=== PATIENT | female | born 1930 | race Caucasian/White ===

== ENCOUNTER → 2016-09-16 | Outpatient (CLI) | payer MEDICARE, BC ==
[~2016-09-16] MED LIST: ACTOS PO; ALENDRONATE SOD70 M1 PO; AMIODARONE PO; AMLODIPINE BESY10 MG PO; ANTIVERT PO; ASPIRIN PO; ASPIRIN81 MG PO; ATENOLOL PO; BENTYL10 M1 PO; BENTYL10 MG PO; CALCIUM + D 6001 TA1 PO; CALCIUM 600 +1 EACH PO; CALTRATE 600 W-1 TAB PO; CALTRATE 600+D PO; CARDIZEM CD PO; CARDIZEM PO; CARDIZEM SR PO; CARVEDILOL6.25 MG PO; CLOPIDOGREL75 MG PO; COREG3.125 MG PO; COREG6.25 MG PO; COUMADIN PO; COUMADIN2.5 MG PO; COUMADIN5 MG PO; DARVOCET-N 1001 TA1 PO; DARVOCET-N 1001 TAB PO; FISH OIL 1,0001 CAP PO; FISH OIL 1,001000 MG PO; FUROSEMIDE40 MG PO; GARLIC; GARLIC OIL1000 MG PO; GARLIC1 MG PO; GARLIC1000 MG PO; GLIPIZIDE10 MG PO; GLUCOTROL XL PO; GLUCOTROL10 MG PO; HCTZ PO; K-DUR20 ME2 PO; KCL PO; LASIX PO; LEVAQUIN PO; LEVOTHYROXINE50 MCG PO; LOSARTAN POTASS50 MG; LOSARTAN POTASS50 MG PO; LOVENOX SUBQ; MILK OF MAGNESIA PO; NAPROXEN PO; NATURAL VITA400 UNI2 PO; NITROSTAT0.4 MG SL; NORVASC PO; NORVASC10 MG PO; OYSTER CALCIUM500 MG PO; PANTOPRAZOLE SO40 MG PO; PERCOCET5/325 PO; PLAVIX PO; PROTONIX PO; SERTRALINE HCL50 MG PO; VIT E PO; VITAMIN D-32000 UNI1 PO; VITAMIN D1000 UNIT PO; VITAMIN D3400 UNI2 PO
--- NOTE | ~2016-09-16 | CT4 ---
[facility] A Service of [facility] & [facility] RADIOLOGY TEXT RESULTS PATIENT: YOUNG PEREIRA LOCATION: [facility] : [birth year] UNIT #: [id number] AGE: [address]: Fausto Casas MD SEX: F ORDER DR: [id number] [facility] [address] [place], [place] [address] [id number] O MR#: [id number] Acc #: [id number] NAME: YOUNG PEREIRA : 1930 SEX: F STUDY DATE/TIME: 09/16/2016 12:31 UNIT: [facility] ROOM: STUDY DESCRIPTION: CT Abd and Pelv Wo Cont Attending Physician: Fausto Casas M.D. Referring Physician: Fausto Casas M.D. Ordering Physician: Fausto Casas M.D. Primary Care Physician: Fausto Casas M.D. MEDICAL IMAGING REPORT This report is preliminary unless electronic signature is present EXAM CT abdomen and pelvis without contrast, 09/16/2016 HISTORY 86-year-old female with recurrent urinary tract infections and microscopic hematuria for 1-1/2 months. Painful urination. Additional history of congestive heart failure, hypertension, diabetes. Previous cholecystectomy, appendectomy, hysterectomy and heart valve surgery. COMPARISON CT abdomen and pelvis about contrast 05/17/2012. Right upper quadrant abdominal ultrasound 11/03/2013. PROCEDURE 3.0 mm noncontrast axial images through the abdomen and pelvis. Enteric contrast was not administered. Sagittal and coronal reformatted images were obtained. This CT exam was performed with one or more of the following radiation dose reduction techniques: automatic exposure control, adjustment of mA and/or kV according to patient size, and iterative reconstruction. FINDINGS Surgical changes of transcatheter aortic valve insertion are noted. Dense coronary artery calcifications are present. Lung bases appear emphysematous but free of acute airspace disease. There is a macronodular surface contour of the liver with hypertrophy of the left hepatic lobe in keeping with the appearance of cirrhosis, similar to prior exam. No focal liver lesion is identified although evaluation is limited due to the lack of IV contrast. The gallbladder is surgically absent. Spleen size within normal limits. Pancreas appears moderately atrophic. Adrenal glands and left kidney are normal. There is mild right renal cortical scarring. [facility] A Service of [facility] & [facility] RADIOLOGY TEXT RESULTS PATIENT: YOUNG PEREIRA LOCATION: [facility] : [birth year] UNIT #: [id number] AGE: [address]: Fausto Casas MD SEX: F ORDER DR: Diverticular changes are seen within the colon particularly in the sigmoid segment, without CT evidence of acute diverticulitis. Appendix is not discretely visualized but no pericecal inflammation is seen. Moderate calcific atherosclerosis is seen within the abdominal aorta and particularly in the origin of the left renal artery. No renal or ureteral stone, hydronephrosis or hydroureter is identified. No perinephric inflammation is seen. PELVIS FINDINGS: Urinary bladder appears within normal limits. Hysterectomy. Rectum appears unremarkable. Multilevel degenerative disc and endplate changes are seen within the spine, with facet arthropathy. No acute osseous abnormalities are identified. IMPRESSION 1. No acute findings within the abdomen or pelvis. 2. No urinary tract stone or hydronephrosis. Unremarkable appearance of the urinary bladder. 3. Mild right renal cortical scarring. 4. Mild emphysema. 5. Signs of prior TAVR, cholecystectomy, hysterectomy. 6. Uncomplicated colonic diverticulosis. 7. Cirrhotic liver morphology, similar in appearance to the prior exam. Dictated by... Melany Hamilton M.D. THIS IS AN ELECTRONICALLY VERIFIED REPORT Melany Hamilton M.D. at 09/18/2016 9:34 PM Loco TD: 09/16/2016 15:32 JOB #: [id number] MEDICAL IMAGING REPORT Page 1 of 1 COPY
== END | disposition home or self-care (01) ==
LOC: CCAT 11:56
DX: N39.0 Urinary tract infection, site not specified (principal); R31.29 Other microscopic hematuria; N28.89 Other specified disorders of kidney and ureter; J43.9 Emphysema, unspecified; K57.30 Diverticulosis of large intestine without perforation or abscess without bleeding; Z90.49 Acquired absence of other specified parts of digestive tract; Z90.710 Acquired absence of both cervix and uterus
CPT/HCPCS: 74176